=== PATIENT | male | born 1955 | race American Indian/Alaskan Native ===

== ENCOUNTER 2019-01-01 11:12 | Inpatient (IN) | payer MEDICARE, OTHER ==
[2019-01-01 12:12] LABS: BUN/Creatinine Ratio 12; Blood Urea Nitrogen 27 mg/dL (9-20); Calcium 8.7 mg/dL (8.4-10.2); Hemolysis Index 4
--- NOTE | 2019-01-01 12:15 | XRay Report ---
AP CHEST: HISTORY: chest pain AP view of the chest demonstrates a normal mediastinal and cardiac contour with clear lungs and normal bony and soft tissue structures. IMPRESSION: No acute cardiopulmonary process is identified.
[2019-01-01 12:25] LABS: Basophils # (Auto) 0.1 K/mm3 (0.0-0.1); Basophils % (Auto) 0.9 % (0.0-1.8); Eosinophils # (Auto) 0.3 K/mm3 (0.0-0.4); Hematocrit 40.6 % (35.5-45.6); Hemoglobin 13.5 gm/dl (11.8-15.2); Lymphocytes # (Auto) 0.9 K/mm3 (1.2-5.4); Lymphocytes % (Auto) 13.9 % (13.4-35.0); Mean Corpuscular HGB Conc 33 % (32-34); Mean Corpuscular Volume 90 fl (84-94); Monocytes # (Auto) 0.5 K/mm3 (0.0-0.8); Monocytes % (Auto) 7.4 % (0.0-7.3); Platelet Count 143 K/mm3 (140-440); Red Blood Count 4.52 M/mm3 (3.65-5.03); Red Cell Distribution Width 16.5 % (13.2-15.2)
[2019-01-01 12:35] LABS: INR 0.94 (0.87-1.13)
--- NOTE | 2019-01-01 13:37 | Emergency Department Report ---
ED Chest Pain HPI - General Chief Complaint: Chest Pain Stated Complaint: CHEST PAIN Time Seen by Provider: 01/01/19 11:26 Source: patient, EMS Mode of arrival: Stretcher Limitations: No Limitations - History of Present Illness Initial Comments: This is a 63-year-old man complains of substernal chest which does not radiate. He is a poor historian. He states that it began when he awoke this morning. He states that his chest does hurt worse when he bends or twists. He was found to have a heart rate in the 40s by EMS. Although his blood pressure was normal, paramedics elected to give him 0.5 mg of atropine IV push. This resulted in a heart rate in the 60s. When he arrived he was again bradycardic in the 50s. He did not look distressed. Chest pain did not radiate. He did complain of some vague shortness of breath. He stated that sometimes he gets sweaty but not today. He has had no nausea or vomiting. Patient states that he may have had prior workup for chest pain. He does not carry any specific diagnosis for CAD or VTE. He states he thinks he's been admitted for chest pain in the past but again is very vague. He denies alcohol or substance abuse. MD Complaint: chest pain -: During the night Onset: awoke with symptoms Pain Location: substernal Pain Radiation: none Severity: moderate Severity scale (0 -10): 5 Quality: aching, sharp Consistency: constant Improves With: nothing Worsens With: nothing re: dyspnea. denies: nausea, vomting, diaphoresis Other Symptoms: denies: cough, fever, syncope Treatments Prior to Arrival: aspirin, other (atropine) Aspirin use within the Past 7 Days: (0) No - Related Data Allergies Allergy/AdvReac Type Severity Reaction Status Date / Time Penicillins Allergy Rash Verified 01/01/19 11:34 Heart Score - HEART Score History: Slightly suspicious EKG: Non-specific Age: 45-65 Risk factors: 1-2 risk factors Troponin: 1-3x normal limit HEART Score: 4 - Critical Actions Critical Actions: 4-6 pts:12-16.6% risk of adverse cardiac event. Should be admitted ED Review of Systems ROS: Stated complaint: CHEST PAIN Other details as noted in HPI Constitutional: denies: chills, fever Eyes: denies: eye pain, eye discharge, vision change ENT: denies: ear pain, throat pain Respiratory: shortness of breath. denies: cough, wheezing Cardiovascular: chest pain. denies: palpitations Endocrine: no symptoms reported Gastrointestinal: denies: abdominal pain, nausea, diarrhea Genitourinary: denies: urgency, dysuria Musculoskeletal: denies: back pain, joint swelling, arthralgia Skin: denies: rash, lesions Neurological: denies: headache, weakness, paresthesias Psychiatric: denies: anxiety, depression Hematological/Lymphatic: denies: easy bleeding, easy bruising ED Past Medical Hx - Past Medical History Previous Medical History?: Yes Hx GERD: Yes - Surgical History Past Surgical History?: Yes Additional Surgical History: Left Nephrectomy - Social History Smoking Status: Current Every Day Smoker Substance Use Type: None ED Physical Exam - General Limitations: No Limitations General appearance: alert, in no apparent distress - Head Head exam: Present: atraumatic, normocephalic - Eye Eye exam: Present: normal appearance. Absent: scleral icterus - ENT ENT exam: Present: mucous membranes moist - Neck Neck exam: Present: normal inspection - Respiratory Respiratory exam: Present: normal lung sounds bilaterally, chest wall tenderness. Absent: respiratory distress - Cardiovascular Cardiovascular Exam: Present: regular rate, normal rhythm. Absent: systolic murmur, diastolic murmur, rubs, gallop - GI/Abdominal GI/Abdominal exam: Present: soft, normal bowel sounds. Absent: distended, tenderness, guarding, rebound, rigid - Rectal Rectal exam: Present: deferred - Extremities Exam Extremities exam: Present: normal inspection - Back Exam Back exam: Present: normal inspection - Neurological Exam Neurological exam: Present: alert, oriented X3, CN II-XII intact. Absent: motor sensory deficit - Psychiatric Psychiatric exam: Present: normal affect, normal mood - Skin Skin exam: Present: warm, dry, intact, normal color. Absent: rash ED Course Vital Signs 01/01/19 01/01/19 01/01/19 11:26 11:30 12:00 Temperature 98.5 F Pulse Rate 49 L 49 L Respiratory 13 15 Rate Blood Pressure 140/85 Blood Pressure 140/85 [Left] O2 Sat by Pulse 96 100 98 Oximetry 01/01/19 01/01/19 01/01/19 12:30 13:01 13:30 Temperature Pulse Rate 47 L 46 L 44 L Respiratory 15 16 16 Rate Blood Pressure 136/73 147/81 138/80 Blood Pressure [Left] O2 Sat by Pulse 100 100 97 Oximetry - Reevaluation(s) Reevaluation #1: Patient remained hemodynamically stable. He was admitted to the hospital service for further care and evaluation. 01/01/19 13:44 DOT score - Dot Score Age > 65: (0) No Aspirin use within the Past 7 Days: (0) No 3 or more CAD Risk Factors: (0) No 2 or more Angina events in past 24 hrs: (0) No Known CAD with more than 50% Stenosis: (0) No Elevated Cardiac Markers: (0) No ST Deviation Greater than 0.5mm: (0) No DOT Score: 0 ED Medical Decision Making - Lab Data Result diagrams: 01/01/19 11:40 01/01/19 11:40 Laboratory Results - last 24 hr 01/01/19 01/01/19 01/01/19 11:40 11:40 11:40 WBC 6.4 RBC 4.52 Hgb 13.5 Hct 40.6 MCV 90 MCH 30 MCHC 33 RDW 16.5 H Plt Count 143 Lymph % (Auto) 13.9 [place] % (Auto) 7.4 H Eos % (Auto) 5.0 H Baso % (Auto) 0.9 Lymph # 0.9 L Burt # 0.5 Eos # 0.3 Baso # 0.1 Seg Neutrophils % 72.8 H Seg Neutrophils # 4.6 PT 13.1 INR 0.94 APTT 29.0 Sodium 140 Potassium 4.5 Chloride 106.2 Carbon Dioxide 25 Anion Gap 13 BUN 27 H Creatinine 2.2 H Estimated GFR 37 BUN/Creatinine Ratio 12 Glucose 95 Calcium 8.7 Troponin T < 0.010 No prior creatinine - EKG Data -: EKG Interpreted by Ar EKG shows normal: sinus rhythm Rate: bradycardia - EKG Data Interpretation: LVH, other (LVH with intraventricular conduction delay and bradycardia left axis deviation LAFB) Critical care attestation.: If time is entered above; I have spent that time in minutes in the direct care of this critically ill patient, excluding procedure time. ED Disposition Clinical Impression: Bradycardia, Chronic renal insufficiency, stage III (moderate) Chest pain Qualifiers: Chest pain type: unspecified Qualified Code(s): R07.9 - Chest pain, unspecified Disposition: DC-09 OP ADMIT IP TO THIS HOSP Is pt being admited?: Yes Does the pt Need Aspirin: Yes Condition: Stable Instructions: Chest Pain (ED) Referrals: RENNY ABTES MD [Primary Care Provider] - 3-5 Days Time of Disposition: 13:46
[2019-01-01] MEDS ORDERED: ASPIRIN ONE (14:29)
[2019-01-01] MEDS: ASPIRIN PO ONE ×2 (14:30→14:49)
[2019-01-01] MEDS ORDERED: TYLENOL PO PRN ×2 (22:07→22:09)
--- NOTE | 2019-01-01 22:07 | History and Physical Report ---
History of Present Illness Date of examination: 01/01/19 Date of admission: 01/01/19 13:46 Chief complaint: Chest pain since yesterday History of present illness: 63-year-old male with history of COPD hypertension and GERD peripheral neuropathy and muscle spasms comes in for substernal chest pain since yesterday. Chest pain more since morning associated with nausea and vomiting 1. EMS was called and he was noticed to have a low heart rate of 45. Was given atropine enroute. Chest pain is intermittent and about 6 on a scale of 1-10. Retrosternal and precordial. No radiation to the left arm on the back. No diaphoresis or palpitations. No shortness of breath. No recent travel. No fevers or chills. Past Medical History Previous Medical History?: Yes GERD: Yes Hyperlipidemia Vitamin D deficiency Depression Anemia Peripheral neuropathy muscle spasms Surgical History Past Surgical History?: Yes Additional Surgical History: Left Nephrectomy Social History Smoking Status: Current Every Day Smoker Substance Use Type: None Family history hypertension Review of Systems ROS: Stated complaint: CHEST PAIN Other details as noted in HPI Constitutional: denies: chills, fever Eyes: denies: eye pain, eye discharge, vision change ENT: denies: ear pain, throat pain Respiratory: shortness of breath. denies: cough, wheezing Cardiovascular: chest pain. denies: palpitations Endocrine: no symptoms reported Gastrointestinal: denies: abdominal pain, nausea, diarrhea Genitourinary: denies: urgency, dysuria Musculoskeletal: denies: back pain, joint swelling, arthralgia Skin: denies: rash, lesions Neurological: denies: headache, weakness, paresthesias Psychiatric: denies: anxiety, depression Hematological/Lymphatic: denies: easy bleeding, easy bruising 14 point review of systems done and otherwise negative. Medications and Allergies Allergies Allergy/AdvReac Type Severity Reaction Status Date / Time Penicillins Allergy Rash Verified 01/01/19 11:34 Home Medications Medication Instructions Recorded Confirmed Last Taken Type Acetaminophen [Tylenol] 500 mg PO Q6HR PRN 01/01/19 01/01/19 Unknown History Albuterol Sulfate [Ventolin Hfa] 2 puff PO Q4-6H 01/01/19 01/01/19 Unknown History AtorvaSTATin [Lipitor] 20 mg PO QHS 01/01/19 01/01/19 Unknown History DULoxetine [Cymbalta] 30 mg PO DAILY 01/01/19 01/01/19 Unknown History Ergocalciferol [Vitamin D2] 1 cap PO QWEEK 01/01/19 01/01/19 Unknown History Ferrous Sulfate [Feosol] 325 mg PO QDAY 01/01/19 01/01/19 Unknown History Omeprazole 20 mg PO DAILY 01/01/19 01/01/19 Unknown History Pregabalin [Lyrica] 50 mg PO TID 01/01/19 01/01/19 Unknown History hydroCHLOROthiazide [Hctz] 12.5 mg PO QDAY 01/01/19 01/01/19 Unknown History tiZANidine [Zanaflex] 4 mg PO BID 01/01/19 01/01/19 Unknown History Exam - Constitutional Vitals: Temp Pulse Resp BP Pulse Ox 98.7 F 56 L 16 128/78 99 01/01/19 19:38 01/01/19 19:38 01/01/19 19:38 01/01/19 19:38 01/01/19 19:38 General appearance: Present: no acute distress, well-nourished - EENT Eyes: Present: PERRL ENT: hearing intact, clear oral mucosa - Neck Neck: Present: supple, normal ROM - Respiratory Respiratory effort: normal Respiratory: bilateral: CTA - Cardiovascular Heart rate: 78 Rhythm: regular Heart Sounds: Present: S1 & S2. Absent: rub, click - Extremities Extremities: no ischemia, pulses intact, pulses symmetrical, No edema Peripheral Pulses: within normal limits - Abdominal General gastrointestinal: Present: soft, non-tender, non-distended, normal bowel sounds Male genitourinary: Present: normal - Rectal Rectal Exam: deferred - Integumentary Integumentary: Present: clear, warm, dry - Musculoskeletal Musculoskeletal: gait normal, strength equal bilaterally - Psychiatric Psychiatric: appropriate mood/affect, intact judgment & insight - Neurologic Neurologic: CNII-XII intact, moves all extremities - Allied Health Allied health notes reviewed: nursing, case management Results - Labs CBC & Chem 7: 01/01/19 11:40 01/01/19 11:40 Labs: Laboratory Last Values WBC 6.4 K/mm3 (4.5-11.0) 01/01/19 11:40 RBC 4.52 M/mm3 (3.65-5.03) 01/01/19 11:40 Hgb 13.5 gm/dl (11.8-15.2) 01/01/19 11:40 Hct 40.6 % (35.5-45.6) 01/01/19 11:40 MCV 90 fl (84-94) 01/01/19 11:40 MCH 30 pg (28-32) 01/01/19 11:40 MCHC 33 % (32-34) 01/01/19 11:40 RDW 16.5 % (13.2-15.2) H 01/01/19 11:40 Plt Count 143 K/mm3 (140-440) 01/01/19 11:40 Lymph % (Auto) 13.9 % (13.4-35.0) 01/01/19 11:40 [place] % (Auto) 7.4 % (0.0-7.3) H 01/01/19 11:40 Eos % (Auto) 5.0 % (0.0-4.3) H 01/01/19 11:40 Baso % (Auto) 0.9 % (0.0-1.8) 01/01/19 11:40 Lymph # 0.9 K/mm3 (1.2-5.4) L 01/01/19 11:40 [place] # 0.5 K/mm3 (0.0-0.8) 01/01/19 11:40 Eos # 0.3 K/mm3 (0.0-0.4) 01/01/19 11:40 Baso # 0.1 K/mm3 (0.0-0.1) 01/01/19 11:40 Seg Neutrophils % 72.8 % (40.0-70.0) H 01/01/19 11:40 Seg Neutrophils # 4.6 K/mm3 (1.8-7.7) 01/01/19 11:40 PT 13.1 Sec. (12.2-14.9) 01/01/19 11:40 INR 0.94 (0.87-1.13) 01/01/19 11:40 APTT 29.0 Sec. (24.2-36.6) 01/01/19 11:40 Sodium 140 mmol/L (137-145) 01/01/19 11:40 Potassium 4.5 mmol/L (3.6-5.0) 01/01/19 11:40 Chloride 106.2 mmol/L (98-107) 01/01/19 11:40 Carbon Dioxide 25 mmol/L (22-30) 01/01/19 11:40 13 mmol/L 01/01/19 11:40 BUN 27 mg/dL (9-20) H 01/01/19 11:40 2.2 mg/dL (0.8-1.5) H 01/01/19 11:40 Estimated GFR 37 ml/min 01/01/19 11:40 12 % 01/01/19 11:40 Glucose 95 mg/dL (75-100) 01/01/19 11:40 Calcium 8.7 mg/dL (8.4-10.2) 01/01/19 11:40 < 0.010 ng/mL (0.00-0.029) 01/01/19 16:27 Short CBC 01/01/19 Range/Units 11:40 WBC 6.4 (4.5-11.0) K/mm3 Hgb 13.5 (11.8-15.2) gm/dl Hct 40.6 (35.5-45.6) % Plt Count 143 (140-440) K/mm3 BMP 01/01/19 11:40 Sodium 140 Potassium 4.5 Chloride 106.2 Carbon Dioxide 25 BUN 27 H Creatinine 2.2 H Glucose 95 Calcium 8.7 Cardiac Enzymes 01/01/19 01/01/19 01/01/19 Range/Units 11:40 14:29 16:27 Troponin T < 0.010 < 0.010 < 0.010 (0.00-0.029) ng/mL - Imaging and Cardiology EKG: report reviewed (sinus bradycardia heart rate of 53/m left ventricle hypertrophy) Chest x-ray: report reviewed (no acute findings) Assessment and Plan Advance Directives: Yes (full code) VTE prophylaxis?: Chemical Plan of care discussed with patient/family: Yes - Patient Problems (1) JAYLA (acute kidney injury) Current Visit: Yes Status: Acute Plan to address problem: Possible ATN IV fluids for now Possible underlying CAD Nephrology consult requested (2) Chest pain Current Visit: Yes Status: Acute Qualifiers: Chest pain type: unspecified Qualified Code(s): R07.9 - Chest pain, unspecified Plan to address problem: Chest pain rule out [place] protocol Serial troponins Lexiscan in the morning Differential diagnosis of costochondritis unlikely Possible GERD (3) Bradycardia Current Visit: Yes Status: Acute Plan to address problem: Asymptomatic Heart rate in 50s Cardiology consult if necessary (4) Hypertension Current Visit: Yes Status: Chronic Qualifiers: Hypertension type: essential hypertension Qualified Code(s): I10 - Essential (primary) hypertension Plan to address problem: Continue antihypertensives (5) Hyperlipidemia Current Visit: Yes Status: Chronic Qualifiers: Hyperlipidemia type: mixed hyperlipidemia Qualified Code(s): E78.2 - Mixed hyperlipidemia Plan to address problem: Continue statins (6) Vitamin D deficiency Current Visit: Yes Status: Chronic Plan to address problem: Continue vitamin D as per schedule Not due for a few days (7) GERD (gastroesophageal reflux disease) Current Visit: Yes Status: Chronic Qualifiers: Esophagitis presence: with esophagitis Qualified Code(s): K21.0 - Gastro- esophageal reflux disease with esophagitis Plan to address problem: Continue omeprazole (8) Peripheral neuropathy Current Visit: Yes Status: Chronic Qualifiers: Peripheral neuropathy type: polyneuropathy, unspecified Qualified Code(s): G62.9 - Polyneuropathy, unspecified Plan to address problem: Continue Lyrica (9) Muscle spasm Current Visit: Yes Status: Chronic Plan to address problem: Continue Zanaflex (10) DVT prophylaxis Current Visit: Yes Status: Acute Plan to address problem: Continue Lovenox and GI prophylaxis
[2019-01-01] MEDS ORDERED: SODIUM CHLORIDE FLUSH SYRINGE 10 ML IV PRN (22:09)
[2019-01-01] MEDS ORDERED: PERCOCET 5/325 PO PRN (22:09)
[2019-01-01] MEDS ORDERED: MORPHINE IV PRN (22:09)
[2019-01-01] MEDS ORDERED: ZOFRAN IV PRN (22:09)
[2019-01-01] MEDS ORDERED: PROAIR IH SCH (22:15)
[2019-01-01] MEDS ORDERED: PROVENTIL IH PRN (22:42)
[2019-01-01] MEDS: ZANAFLEX PO SCH (23:26)
[2019-01-01] MEDS: NACL 0.9% 1000 ML 1,000 ML IV SCH (23:28)
[2019-01-02 05:12] LABS: Basophils % (Auto) 0.6 % (0.0-1.8); Eosinophils # (Auto) 0.3 K/mm3 (0.0-0.4); Hematocrit 39.3 % (35.5-45.6); Hemoglobin 13.2 gm/dl (11.8-15.2); Lymphocytes # (Auto) 1.3 K/mm3 (1.2-5.4); Lymphocytes % (Auto) 20.6 % (13.4-35.0); Mean Corpuscular HGB Conc 34 % (32-34); Mean Corpuscular Volume 89 fl (84-94); Monocytes # (Auto) 0.7 K/mm3 (0.0-0.8); Monocytes % (Auto) 11.1 % (0.0-7.3); Platelet Count 137 K/mm3 (140-440); Red Cell Distribution Width 15.9 % (13.2-15.2)
[2019-01-02 05:36] LABS: Albumin 3.6 g/dL (3.9-5); Calcium 8.6 mg/dL (8.4-10.2)
[2019-01-02] MEDS ORDERED: NON-FORMULARY (Pregabalin [Lyrica] 50 MG) PO SCH (08:00)
[2019-01-02] MEDS ORDERED: LEXISCAN IV ONE ×2 (08:40→08:42)
[2019-01-02] MEDS ORDERED: PEPCID IV SCH (10:00)
[2019-01-02] MEDS ORDERED: NON-FORMULARY (Omeprazole [Omeprazole] 20 MG) PO SCH (10:00)
[2019-01-02] MEDS: LYRICA PO SCH ×3 (10:22→21:30)
[2019-01-02] MEDS: CYMBALTA PO SCH (10:22)
[2019-01-02] MEDS: FEOSOL PO SCH (10:22)
[2019-01-02] MEDS: ZANAFLEX PO SCH ×2 (10:22→21:30)
[2019-01-02] MEDS: HCTZ PO SCH (10:23)
[2019-01-02] MEDS: PROTONIX PO SCH (10:23)
[2019-01-02] MEDS: NACL 0.9% 1000 ML 1,000 ML IV SCH (10:27)
--- NOTE | 2019-01-02 11:28 | Consultation ---
History of Present Illness - Reason for Consult Consult date: 01/02/19 acute renal failure - History of Present Illness The patient is a 63-year-old male with history significant for COPD, GERD, HLD and Peripheral neuropathy who presented to [facility] ED with pain in the epigastric area for about 2 days. Patient gets this kind of pain everytime he eats black pepper. Patient is a very vague historian. The pain is aching, intermittent, not radiating and epigastric / xiphisternal area. He denies nausea, vomiting, diarrhea, fever, chills, dizziness, syncope or NSAID intake. Creatinine was 2.2 on admission, baseline unknown. Nephrology was consulted for further evaluation. Past History Past Medical History: COPD, hyperlipidemia, other (Neuropathy) Medications and Allergies Allergies Allergy/AdvReac Type Severity Reaction Status Date / Time black pepper Allergy Itching Verified 01/02/19 01:58 Penicillins Allergy Rash Verified 01/01/19 11:34 Home Medications Medication Instructions Recorded Confirmed Last Taken Type Acetaminophen [Tylenol] 500 mg PO Q6HR PRN 01/01/19 01/01/19 Unknown History Albuterol Sulfate [Ventolin Hfa] 2 puff PO Q4-6H 01/01/19 01/01/19 Unknown History AtorvaSTATin [Lipitor] 20 mg PO QHS 01/01/19 01/01/19 Unknown History DULoxetine [Cymbalta] 30 mg PO DAILY 01/01/19 01/01/19 Unknown History Ergocalciferol [Vitamin D2] 1 cap PO QWEEK 01/01/19 01/01/19 Unknown History Ferrous Sulfate [Feosol] 325 mg PO QDAY 01/01/19 01/01/19 Unknown History Omeprazole 20 mg PO DAILY 01/01/19 01/01/19 Unknown History Pregabalin [Lyrica] 50 mg PO TID 01/01/19 01/01/19 Unknown History hydroCHLOROthiazide [Hctz] 12.5 mg PO QDAY 01/01/19 01/01/19 Unknown History tiZANidine [Zanaflex] 4 mg PO BID 01/01/19 01/01/19 Unknown History Active Meds: Active Medications Acetaminophen (Tylenol) 650 mg PO Q4H PRN PRN Reason: Pain MILD(1-3)/Fever >100.5/[place] Albuterol (Proventil) 2.5 mg IH Q4HRT PRN PRN Reason: Shortness Of Breath Atorvastatin Calcium (Lipitor) 20 mg PO QHS [facility] Duloxetine HCl (Cymbalta) 30 mg PO DAILY [facility] Last Admin: 01/02/19 10:22 Dose: 30 mg Documented by: Ferrous Sulfate (Feosol) 325 mg PO QDAY [facility] Last Admin: 01/02/19 10:22 Dose: 325 mg Documented by: Hydrochlorothiazide (Hctz) 12.5 mg PO QDAY [facility] Last Admin: 01/02/19 10:23 Dose: 12.5 mg Documented by: Sodium Chloride (Nacl 0.9% 1000 Ml) 1,000 mls @ 125 mls/hr IV DIRECT [facility] Last Admin: 01/02/19 10:27 Dose: 75 mls/hr Documented by: Morphine Sulfate (Morphine) 2 mg IV Q4H PRN PRN Reason: Pain, Moderate (4-6) Ondansetron HCl (Zofran) 4 mg IV Q8H PRN PRN Reason: Nausea And Vomiting Oxycodone/Acetaminophen (Percocet 5/325) 1 tab PO Q6H PRN PRN Reason: Pain, Moderate (4-6) Pantoprazole Sodium (Protonix) 20 mg PO QDAY [facility] Last Admin: 01/02/19 10:23 Dose: 20 mg Documented by: Pregabalin (Lyrica) 50 mg PO TID [facility] Last Admin: 01/02/19 10:22 Dose: 50 mg Documented by: Sodium Chloride (Sodium Chloride Flush Syringe 10 Ml) 10 ml IV BID [facility] Sodium Chloride (Sodium Chloride Flush Syringe 10 Ml) 10 ml IV PRN PRN PRN Reason: LINE FLUSH Tizanidine HCl (Zanaflex) 4 mg PO BID [facility] Last Admin: 01/02/19 10:22 Dose: 4 mg Documented by: Review of Systems Constitutional: no weight loss, no weight gain, no fever, no chills, no anorexia, no fatigue, no weakness Cardiovascular: chest pain, no orthopnea, no edema, no syncope, no lightheadedness, no shortness of breath, no dyspnea on exertion, no high blood pressure, no leg edema Respiratory: no cough, no shortness of breath, no dyspnea on exertion, no home oxygen Gastrointestinal: abdominal pain, no diarrhea, no melena, no hematochezia Genitourinary Male: no dysuria, no hematuria Rectal: no bleeding Musculoskeletal: no neck pain, no muscle weakness Integumentary: no rash, no redness, no sores, no wounds, no jaundice Neurological: no weakness, no aphasia, no change in speech, no change in mentation, no confusion Exam - Vital Signs Vital signs: Vital Signs Pulse Ox 96 01/01/19 11:26 - General Appearance General appearance: well-developed, well-nourished, appears stated age, other (not in distress) EENT: ATNC, PERRL, mucous membranes moist, hearing intact, vision intact Neck: Present: neck supple, trachea midline Respiratory: Clear to Ascultation Heart: regular, S1S2, no murmurs Gastrointestinal: Present: normoactive bowel sounds. Absent: tenderness, distended Integumentary: no rash, warm and dry Neurologic: no focal deficit, no asterixis, alert and oriented x3 Musculoskeletal: Present: other (no edema) Results - Lab Results 01/02/19 04:00 01/02/19 04:00 Most recent lab results Calcium 8.6 mg/dL (8.4-10.2) 01/02/19 04:00 - Image Kidney/bladder ultrasound: pending Assessment and Plan 1. Acute kidney injury: Suspect Vasomotor JAYLA superimposed on CKD. Urine studies and Renal US ordered. Continue IV fluids. Monitor renal function. Avoid nephrotoxic agents. Meds dosage based on GFR. 2. FEN: Monitor lytes. 3. Chest pain. 4. Asymptomatic bradycardia.
--- NOTE | 2019-01-02 14:39 | Progress Note ---
Assessment and Plan Assessment and plan: 63-year-old male with history of COPD, hypertension and GERD peripheral neuropathy and muscle spasms comes in for substernal chest pain since yesterday. Chest pain more since morning associated with nausea and vomiting 1. EMS was called and he was noticed to have a low heart rate of 45. Was given atropine enroute. Chest pain is intermittent and about 6 on a scale of 1-10. Retrosternal and precordial. No radiation to the left arm on the back. No diaphoresis or palpitations. No shortness of breath. No recent travel. No fevers or chills. 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 Abdomen outpatient follow-up with cardiology consult and bradycardia. Continue antihypertensive and appropriate medication I discussed with the patient DVT and GI prophylaxis History Interval history: Patient and examined no acute distress at this time resting comfortably. Denies any further chest pain. Denies any nausea vomiting. Hospitalist Physical - Physical exam Narrative exam: VITAL SIGNS: Reviewed. GENERAL: The patient appeared well nourished and normally developed, Vital signs as documented. HEAD: No signs of head trauma. EYES: Pupils are equal. Extraocular motions intact. EARS: Hearing grossly intact. MOUTH: Oropharynx is normal. NECK: No adenopathy, no JVD. Mildly tender on the right side. CHEST: Chest with clear breath sounds bilaterally. No wheezes, rales, or rhonchi. CARDIAC: Regular rate and rhythm. S1 and S2, without murmurs, gallops, or rubs. VASCULAR: No Edema. Peripheral pulses normal and equal in all extremities. ABDOMEN: Soft, non tender and non distended. No rebound or guarding, and no masses palpated. Bowel Sounds normal. MUSCULOSKELETAL: Good range of motion of all major joints. Extremities without clubbing, cyanosis or edema. NEUROLOGIC EXAM: Alert and oriented x 3 No focal sensory or strength deficit s. Speech normal. Follows commands. PSYCHIATRIC: Mood normal. SKIN: Well-healed left surgical lesion in the flank area. - Constitutional Vitals: Temp Pulse Resp BP Pulse Ox 99.1 F 58 L 18 128/74 93 01/02/19 07:49 01/02/19 04:09 01/02/19 07:49 01/02/19 09:13 01/02/19 04:09 General appearance: Present: no acute distress, well-nourished Results - Labs CBC & Chem 7: 01/02/19 04:00 01/02/19 04:00 Labs: Laboratory Last Values WBC 6.5 K/mm3 (4.5-11.0) 01/02/19 04:00 RBC 4.40 M/mm3 (3.65-5.03) 01/02/19 04:00 Hgb 13.2 gm/dl (11.8-15.2) 01/02/19 04:00 Hct 39.3 % (35.5-45.6) 01/02/19 04:00 MCV 89 fl (84-94) 01/02/19 04:00 MCH 30 pg (28-32) 01/02/19 04:00 MCHC 34 % (32-34) 01/02/19 04:00 RDW 15.9 % (13.2-15.2) H 01/02/19 04:00 Plt Count 137 K/mm3 (140-440) L 01/02/19 04:00 Lymph % (Auto) 20.6 % (13.4-35.0) 01/02/19 04:00 Pitkin % (Auto) 11.1 % (0.0-7.3) H 01/02/19 04:00 Eos % (Auto) 5.0 % (0.0-4.3) H 01/02/19 04:00 Baso % (Auto) 0.6 % (0.0-1.8) 01/02/19 04:00 Lymph # 1.3 K/mm3 (1.2-5.4) 01/02/19 04:00 Pitkin # 0.7 K/mm3 (0.0-0.8) 01/02/19 04:00 Eos # 0.3 K/mm3 (0.0-0.4) 01/02/19 04:00 Baso # 0.0 K/mm3 (0.0-0.1) 01/02/19 04:00 Seg Neutrophils % 62.7 % (40.0-70.0) 01/02/19 04:00 Seg Neutrophils # 4.1 K/mm3 (1.8-7.7) 01/02/19 04:00 PT 13.1 Sec. (12.2-14.9) 01/01/19 11:40 INR 0.94 (0.87-1.13) 01/01/19 11:40 APTT 29.0 Sec. (24.2-36.6) 01/01/19 11:40 Sodium 140 mmol/L (137-145) 01/02/19 04:00 Potassium 4.4 mmol/L (3.6-5.0) 01/02/19 04:00 Chloride 106.4 mmol/L (98-107) 01/02/19 04:00 Carbon Dioxide 23 mmol/L (22-30) 01/02/19 04:00 15 mmol/L 01/02/19 04:00 BUN 23 mg/dL (9-20) H 01/02/19 04:00 1.9 mg/dL (0.8-1.5) H 01/02/19 04:00 Estimated GFR 43 ml/min 01/02/19 04:00 12 % 01/02/19 04:00 Glucose 97 mg/dL (75-100) 01/02/19 04:00 5.5 % (4-6) 01/01/19 22:42 Calcium 8.6 mg/dL (8.4-10.2) 01/02/19 04:00 0.90 mg/dL (0.1-1.2) 01/02/19 04:00 AST 14 units/L (5-40) 01/02/19 04:00 ALT 10 units/L (7-56) 01/02/19 04:00 63 units/L (35-129) 01/02/19 04:00 < 0.010 ng/mL (0.00-0.029) 01/02/19 04:00 6.3 g/dL (6.3-8.2) 01/02/19 04:00 3.6 g/dL (3.9-5) L 01/02/19 04:00 1.3 % 01/02/19 04:00 Active Medications - Current Medications Current Medications: Generic Name Dose Route Start Last Admin Trade Name Freq PRN Reason Stop Dose Admin Acetaminophen 650 mg 01/01/19 22:09 Tylenol PO Q4H PRN Pain MILD(1-3)/Fever >100.5/STRATTON Albuterol 2.5 mg 01/01/19 22:42 Proventil IH Q4HRT PRN Shortness Of Breath Atorvastatin Calcium 20 mg 01/02/19 22:00 Lipitor PO QHS JEYSON Duloxetine HCl 30 mg 01/02/19 10:00 01/02/19 10:22 Cymbalta PO 30 mg DAILY JEYSON Administration Ferrous Sulfate 325 mg 01/02/19 10:00 01/02/19 10:22 Feosol PO 325 mg QDAY JEYSON Administration Hydrochlorothiazide 12.5 mg 01/02/19 10:00 01/02/19 10:23 Hctz PO 12.5 mg QDAY JEYSON Administration Sodium Chloride 1,000 mls @ 125 mls/hr 01/01/19 23:00 01/02/19 10:27 Nacl 0.9% 1000 Ml IV 75 mls/hr DIRECT JEYSON Administration Morphine Sulfate 2 mg 01/01/19 22:09 Morphine IV Q4H PRN Pain, Moderate (4-6) Ondansetron HCl 4 mg 01/01/19 22:09 Zofran IV Q8H PRN Nausea And Vomiting Oxycodone/Acetaminophen 1 tab 01/01/19 22:09 Percocet 5/325 PO Q6H PRN Pain, Moderate (4-6) Pantoprazole Sodium 20 mg 01/02/19 10:00 01/02/19 10:23 Protonix PO 20 mg QDAY JEYSON Administration Pregabalin 50 mg 01/02/19 08:00 01/02/19 10:22 Lyrica PO 50 mg TID JEYSON Administration Sodium Chloride 10 ml 01/02/19 10:00 Sodium Chloride Flush Syringe 10 Ml IV BID JEYSON Sodium Chloride 10 ml 01/01/19 22:09 Sodium Chloride Flush Syringe 10 Ml IV PRN PRN LINE FLUSH Tizanidine HCl 4 mg 01/01/19 23:00 01/02/19 10:22 Zanaflex PO 4 mg BID JEYSON Administration
--- NOTE | 2019-01-02 15:20 | Ultrasound Report ---
ULTRASOUND RENAL BILATERAL HISTORY: Acute renal failure. TECHNIQUE: transabdominal ultrasound with color Doppler interrogation. FINDINGS: The right kidney measures 11.3 x 5.2 x 6.7cm. Right renal cortex: 1.4cm. The patient reports left nephrectomy 2 years ago. The left kidney is not detected on ultrasound. The right kidney is normal size, contour and position. There is increased cortical echotexture. There are 2 cysts near the superior pole of the right kidney measuring 2.7 cm and 1.6 cm. No evidence for mass, calculus, hydronephrosis or perinephric fluid. Images of the bladder are unremarkable. A prominent prostate gland is suspected. IMPRESSION: Left nephrectomy. The right kidney is echogenic consistent with nonspecific renal parenchymal disease. 2 simple right renal cysts.
[2019-01-02] MEDS: SODIUM CHLORIDE FLUSH SYRINGE 10 ML IV SCH (21:31)
[2019-01-03 01:02] LABS: Bilirubin,Urine NEG (Negative); Blood,Urine SM (Negative); Color,Urine Yellow (Yellow); Mucus,Urine FEW /HPF; Protein,Urine <15 mg/dL mg/dL (Negative); Urobilinogen,Urine < 2.0 mg/dL (<2.0)
[2019-01-03 01:11] LABS: Protein/Creatinine Ratio,Urine 0.29
--- NOTE | 2019-01-03 01:53 | Treadmill Report ---
NUCLEAR PERFUSION STUDY REASON FOR STUDY: Bradycardia, near syncope. IMAGING PROTOCOL: The patient received 10 mCi of Technetium 99m Tetrofosmin for resting image and 28 mCi of Technetium 99m Tetrofosmin for stress imaging. The imaging for the whole procedure was completed 30-90 minutes following the initial injection of Technetium 99m Tetrofosmin. The SPECT imaging in the 180 degree arc was performed in the right anterior oblique projection. Computerized reconstruction of the images was performed for analysis. IMAGING RESULTS: Normal cavity size from stress to rest. Normal distribution of radionuclide in the anterior, inferior, septal, and apical regions. Gated SPECT, EF of 54%. SUMMARY: 1. Negative Lexiscan EKG. The patient with sinus bradycardia. 2. Normal rest and stress myocardial perfusion. No significant ischemia. No wall motion abnormality. Gated SPECT, EF of 54%. 1. JOB# [id number] JACQUELIN/MEREDITH
[2019-01-03 05:38] LABS: Calcium 8.5 mg/dL (8.4-10.2)
--- NOTE | 2019-01-03 08:29 | Progress Note ---
Assessment and Plan 1. Acute kidney injury: Suspect Vasomotor JAYLA superimposed on CKD. Unilateral kidney, s/p L nephrectomy. Continue IV fluids. Renal function is improving. Monitor renal function. Avoid nephrotoxic agents. Meds dosage based on GFR. 2. FEN: Monitor lytes. 3. Chest pain: Negative stress test. 4. Asymptomatic bradycardia. Subjective Date of service: 01/03/19 Interval history: Patient is feeling better today. Objective - Vital Signs Vital signs: Vital Signs - 12hr 01/02/19 01/03/19 01/03/19 23:24 04:12 07:56 Temperature 98.7 F 98.5 F 98.8 F Pulse Rate 50 L 50 L 50 L Respiratory 16 16 18 Rate Blood Pressure 126/71 124/76 135/85 O2 Sat by Pulse 94 92 96 Oximetry - General Appearance General appearance: well-developed, well-nourished, appears stated age, other (not in distress) EENT: ATNC, PERRL, mucous membranes moist, hearing intact, vision intact Neck: supple Respiratory: Present: Clear to Ascultation Cardiology: regular, S1S2, no murmurs Gastrointestinal: normoactive bowel sounds, no tenderness, no distended Integumentary: no rash, warm and dry Neurologic: no focal deficit, no asterixis, alert and oriented x3 Musculoskeletal: other (no edema) Psychiatric: cooperative - Lab 01/02/19 04:00 01/03/19 04:02 Most recent lab results Calcium 8.5 mg/dL (8.4-10.2) 01/03/19 04:02 Phosphorus 2.10 mg/dL (2.5-4.5) L 01/03/19 04:02 Magnesium 2.20 mg/dL (1.7-2.3) 01/03/19 04:02 59.0 mg/dL (0.1-20.0) H 01/02/19 00:01 69 mmol/L 01/02/19 00:01 17 mg/dL (5-11.8) H 01/02/19 00:01 Medications & Allergies - Medications Allergies/Adverse Reactions: Allergies black pepper Allergy (Verified 01/02/19 01:58) Itching Penicillins Allergy (Verified 01/01/19 11:34) Rash Home Medications: Home Medications Medication Instructions Recorded Confirmed Last Taken Type Acetaminophen [Tylenol] 500 mg PO Q6HR PRN 01/01/19 01/01/19 Unknown History Albuterol Sulfate [Ventolin Hfa] 2 puff PO Q4-6H 01/01/19 01/01/19 Unknown History AtorvaSTATin [Lipitor] 20 mg PO QHS 01/01/19 01/01/19 Unknown History DULoxetine [Cymbalta] 30 mg PO DAILY 01/01/19 01/01/19 Unknown History Ergocalciferol [Vitamin D2] 1 cap PO QWEEK 01/01/19 01/01/19 Unknown History Ferrous Sulfate [Feosol] 325 mg PO QDAY 01/01/19 01/01/19 Unknown History Omeprazole 20 mg PO DAILY 01/01/19 01/01/19 Unknown History Pregabalin [Lyrica] 50 mg PO TID 01/01/19 01/01/19 Unknown History hydroCHLOROthiazide [Hctz] 12.5 mg PO QDAY 01/01/19 01/01/19 Unknown History tiZANidine [Zanaflex] 4 mg PO BID 01/01/19 01/01/19 Unknown History Active Medications: Generic Name Dose Route Start Last Admin Trade Name Freq PRN Reason Stop Dose Admin Acetaminophen 650 mg 01/01/19 22:09 Tylenol PO Q4H PRN Pain MILD(1-3)/Fever >100.5/STRATTON Albuterol 2.5 mg 01/01/19 22:42 Proventil IH Q4HRT PRN Shortness Of Breath Atorvastatin Calcium 20 mg 01/02/19 22:00 01/02/19 21:30 Lipitor PO 20 mg QHS JEYSON Administration Duloxetine HCl 30 mg 01/02/19 10:00 01/02/19 10:22 Cymbalta PO 30 mg DAILY JEYSON Administration Ferrous Sulfate 325 mg 01/02/19 10:00 01/02/19 10:22 Feosol PO 325 mg QDAY JEYSON Administration Hydrochlorothiazide 12.5 mg 01/02/19 10:00 01/02/19 10:23 Hctz PO 12.5 mg QDAY JEYSON Administration Sodium Chloride 1,000 mls @ 125 mls/hr 01/01/19 23:00 01/02/19 10:27 Nacl 0.9% 1000 Ml IV 75 mls/hr DIRECT JEYSON Administration Morphine Sulfate 2 mg 01/01/19 22:09 Morphine IV Q4H PRN Pain, Moderate (4-6) Ondansetron HCl 4 mg 01/01/19 22:09 Zofran IV Q8H PRN Nausea And Vomiting Oxycodone/Acetaminophen 1 tab 01/01/19 22:09 Percocet 5/325 PO Q6H PRN Pain, Moderate (4-6) Pantoprazole Sodium 20 mg 01/02/19 10:00 01/02/19 10:23 Protonix PO 20 mg QDAY JEYSON Administration Pregabalin 50 mg 01/02/19 08:00 01/02/19 21:30 Lyrica PO 50 mg TID JEYSON Administration Sodium Chloride 10 ml 01/02/19 10:00 01/02/19 21:31 Sodium Chloride Flush Syringe 10 Ml IV Not Given BID JEYSON Sodium Chloride 10 ml 01/01/19 22:09 Sodium Chloride Flush Syringe 10 Ml IV PRN PRN LINE FLUSH Tizanidine HCl 4 mg 01/01/19 23:00 01/02/19 21:30 Zanaflex PO 4 mg BID JEYSON Administration
[2019-01-03] MEDS: HCTZ PO SCH (10:13)
[2019-01-03] MEDS: FEOSOL PO SCH (10:13)
[2019-01-03] MEDS: LYRICA PO SCH ×3 (10:13→20:19)
[2019-01-03] MEDS: CYMBALTA PO SCH (10:13)
[2019-01-03] MEDS: PROTONIX PO SCH (10:14)
[2019-01-03] MEDS: ZANAFLEX PO SCH ×2 (10:14→22:17)
[2019-01-03] MEDS: SODIUM CHLORIDE FLUSH SYRINGE 10 ML IV SCH ×2 (10:14→22:17)
--- NOTE | 2019-01-03 17:19 | Progress Note ---
Assessment and Plan - Patient Problems (1) JAYLA (acute kidney injury) Current Visit: Yes Status: Acute Plan to address problem: Possible ATN versus vasomotor nephropathy IV fluids for now--possible discharge tomorrow Possible underlying CKD Nephrology consult appreciated (2) Chest pain Current Visit: Yes Status: Acute Qualifiers: Chest pain type: unspecified Qualified Code(s): R07.9 - Chest pain, unspecified Plan to address problem: Chest pain rule out SC protocol Serial troponins Lexiscan negative1 negative (3) Bradycardia Current Visit: Yes Status: Acute Plan to address problem: Asymptomatic Heart rate in 50s Cardiology consult if necessary (4) Hypertension Current Visit: Yes Status: Chronic Qualifiers: Hypertension type: essential hypertension Qualified Code(s): I10 - Essential (primary) hypertension Plan to address problem: Continue antihypertensives (5) Hyperlipidemia Current Visit: Yes Status: Chronic Qualifiers: Hyperlipidemia type: mixed hyperlipidemia Qualified Code(s): E78.2 - Mixed hyperlipidemia Plan to address problem: Continue statins (6) Vitamin D deficiency Current Visit: Yes Status: Chronic Plan to address problem: Continue vitamin D as per schedule Not due for a few days (7) GERD (gastroesophageal reflux disease) Current Visit: Yes Status: Chronic Qualifiers: Esophagitis presence: with esophagitis Qualified Code(s): K21.0 - Gastro- esophageal reflux disease with esophagitis Plan to address problem: Continue omeprazole (8) Peripheral neuropathy Current Visit: Yes Status: Chronic Qualifiers: Peripheral neuropathy type: polyneuropathy, unspecified Qualified Code(s): G62.9 - Polyneuropathy, unspecified Plan to address problem: Continue Lyrica (9) Muscle spasm Current Visit: Yes Status: Chronic Plan to address problem: Continue Zanaflex (10) DVT prophylaxis Current Visit: Yes Status: Acute Plan to address problem: Continue Lovenox and GI prophylaxis Subjective Date of service: 01/03/19 Principal diagnosis: JAYLA/Chest pain Interval history: Symptomatically better Has some abdominal discomfort Objective - Constitutional Vitals: Vital Signs - 12hr 01/03/19 01/03/19 01/03/19 07:56 09:00 12:03 Temperature 98.8 F 98.1 F Pulse Rate 50 L 50 L Respiratory 18 18 Rate Blood Pressure 135/85 149/95 O2 Sat by Pulse 96 Oximetry General appearance: Present: no acute distress, well-nourished - EENT Eyes: PERRL, EOM intact ENT: hearing intact, clear oral mucosa Ears: bilateral: normal - Neck Neck: supple, normal ROM - Respiratory Respiratory effort: normal Respiratory: bilateral: CTA - Breasts Breasts: normal - Cardiovascular Heart rate: 78 Rhythm: regular Heart Sounds: Present: S1 & S2. Absent: gallop, rub Extremities: no ischemia, pulses intact, No edema, normal color, Full ROM - Gastrointestinal General gastrointestinal: Present: soft, non-tender, non-distended, normal bowel sounds - Genitourinary Male genitourinary: normal - Integumentary Integumentary: clear, warm, dry - Musculoskeletal Musculoskeletal: 1, strength equal bilaterally - Neurologic Neurologic: moves all extremities - Psychiatric Psychiatric: memory intact, appropriate mood/affect, intact judgment & insight - Allied health notes Allied health notes reviewed: nursing, case management - Labs CBC & Chem 7: 01/02/19 04:00 01/03/19 04:02 Labs: Abnormal lab results 01/02/19 01/02/19 01/03/19 Range/Units 00:01 00:01 04:02 Creatinine 1.8 H (0.8-1.5) mg/dL Glucose 108 H (75-100) mg/dL Phosphorus 2.10 L (2.5-4.5) mg/dL Urine WBC (Auto) 53.0 H (0.0-6.0) /HPF Urine Creatinine 59.0 H (0.1-20.0) mg/dL Urine Total Protein 17 H (5-11.8) mg/dL Renal ultrasound IMPRESSION: Left nephrectomy. The right kidney is echogenic consistent with nonspecific renal parenchymal disease. 2 simple right renal cysts.
[2019-01-03] MEDS ORDERED: PHOS-NAK PO ONE (17:26)
[2019-01-03] MEDS: NACL 0.9% 1000 ML 1,000 ML IV SCH (18:00)
[2019-01-04 05:36] VITALS: BP 112/63
[2019-01-04] MEDS: NACL 0.9% 1000 ML 1,000 ML IV SCH (07:35)
[2019-01-04] MEDS: LYRICA PO SCH (08:38)
[2019-01-04 09:01] LABS: Albumin 3.3 g/dL (3.9-5); Calcium 8.5 mg/dL (8.4-10.2)
--- NOTE | 2019-01-04 09:56 | Progress Note ---
Assessment and Plan 1. Acute kidney injury: Suspect Vasomotor JAYLA superimposed on CKD. Unilateral kidney, s/p L nephrectomy. Renal function is stabel, likely his baseline. Monitor renal function. Avoid nephrotoxic agents. Meds dosage based on GFR. 2. FEN: Monitor lytes. 3. Chest pain: Negative stress test. 4. Asymptomatic bradycardia. F/u with me in 1-2 weeks. Subjective Date of service: 01/04/19 Principal diagnosis: JAYLA/Chest pain Interval history: Patient is feeling better today. Objective - Vital Signs Vital signs: Vital Signs - 12hr 01/03/19 01/04/19 23:27 05:34 Temperature 98.1 F 98.3 F Pulse Rate 54 L 63 Respiratory 24 16 Rate Blood Pressure 112/63 [Left] O2 Sat by Pulse 98 94 Oximetry - General Appearance General appearance: well-developed, well-nourished, appears stated age, other (not in distress) EENT: ATNC, PERRL, mucous membranes moist, hearing intact, vision intact Neck: supple Respiratory: Present: Clear to Ascultation Cardiology: regular, S1S2, no murmurs Gastrointestinal: normoactive bowel sounds, no tenderness, no distended Integumentary: no rash, warm and dry Neurologic: no focal deficit, no asterixis, alert and oriented x3 Musculoskeletal: other (no edema) Psychiatric: cooperative - Lab 01/02/19 04:00 01/04/19 08:02 Most recent lab results Calcium 8.5 mg/dL (8.4-10.2) 01/04/19 08:02 Phosphorus 2.60 mg/dL (2.5-4.5) D 01/04/19 08:02 Magnesium 2.20 mg/dL (1.7-2.3) 01/03/19 04:02 59.0 mg/dL (0.1-20.0) H 01/02/19 00:01 69 mmol/L 01/02/19 00:01 17 mg/dL (5-11.8) H 01/02/19 00:01 Medications & Allergies - Medications Allergies/Adverse Reactions: Allergies black pepper Allergy (Verified 01/02/19 01:58) Itching Penicillins Allergy (Verified 01/01/19 11:34) Rash Home Medications: Home Medications Medication Instructions Recorded Confirmed Last Taken Type Acetaminophen [Acetaminophen TAB] 500 mg PO Q6HR PRN 01/01/19 01/01/19 Unknown History Albuterol Sulfate [Ventolin Hfa] 2 puff PO Q4-6H 01/01/19 01/01/19 Unknown History AtorvaSTATin [Lipitor] 20 mg PO QHS 01/01/19 01/01/19 Unknown History DULoxetine [Cymbalta] 30 mg PO DAILY 01/01/19 01/01/19 Unknown History Ergocalciferol [Vitamin D2] 1 cap PO QWEEK 01/01/19 01/01/19 Unknown History Ferrous Sulfate [Feosol 325 MG tab] 325 mg PO QDAY 01/01/19 01/01/19 Unknown History Omeprazole 20 mg PO DAILY 01/01/19 01/01/19 Unknown History Pregabalin [Lyrica] 50 mg PO TID 01/01/19 01/01/19 Unknown History hydroCHLOROthiazide [HCTZ] 12.5 mg PO QDAY 01/01/19 01/01/19 Unknown History tiZANidine [Zanaflex] 4 mg PO BID 01/01/19 01/01/19 Unknown History Active Medications: Generic Name Dose Route Start Last Admin Trade Name Freq PRN Reason Stop Dose Admin Acetaminophen 650 mg 01/01/19 22:09 Tylenol PO Q4H PRN Pain MILD(1-3)/Fever >100.5/STRATTON Albuterol 2.5 mg 01/01/19 22:42 Proventil IH Q4HRT PRN Shortness Of Breath Atorvastatin Calcium 20 mg 01/02/19 22:00 01/03/19 22:17 Lipitor PO 20 mg QHS JEYSON Administration Duloxetine HCl 30 mg 01/02/19 10:00 01/03/19 10:13 Cymbalta PO 30 mg DAILY JEYSON Administration Ferrous Sulfate 325 mg 01/02/19 10:00 01/03/19 10:13 Feosol PO 325 mg QDAY JEYSON Administration Hydrochlorothiazide 12.5 mg 01/02/19 10:00 01/03/19 10:13 Hctz PO 12.5 mg QDAY JEYSON Administration Sodium Chloride 1,000 mls @ 125 mls/hr 01/01/19 23:00 01/04/19 07:35 Nacl 0.9% 1000 Ml IV 75 mls/hr DIRECT JEYSON Administration Morphine Sulfate 2 mg 01/01/19 22:09 Morphine IV Q4H PRN Pain, Moderate (4-6) Ondansetron HCl 4 mg 01/01/19 22:09 Zofran IV Q8H PRN Nausea And Vomiting Oxycodone/Acetaminophen 1 tab 01/01/19 22:09 Percocet 5/325 PO Q6H PRN Pain, Moderate (4-6) Pantoprazole Sodium 20 mg 01/02/19 10:00 01/03/19 10:14 Protonix PO 20 mg QDAY JEYSON Administration Pregabalin 50 mg 01/02/19 08:00 01/04/19 08:38 Lyrica PO 50 mg TID JEYSON Administration Sodium Chloride 10 ml 01/02/19 10:00 01/03/19 22:17 Sodium Chloride Flush Syringe 10 Ml IV 10 ml BID JEYSON Administration Sodium Chloride 10 ml 01/01/19 22:09 Sodium Chloride Flush Syringe 10 Ml IV PRN PRN LINE FLUSH Tizanidine HCl 4 mg 01/01/19 23:00 01/03/19 22:17 Zanaflex PO 4 mg BID JEYSON Administration
--- NOTE | 2019-01-04 10:21 | Discharge Summary ---
Providers - Providers Date of Admission: 01/01/19 13:46 Attending physician: CECY PARISH MD 01/01/19 22:34 Consult to Physician [CONS] Routine Comment: Consulting Provider: SHANA MONCADA Physician Instructions: Reason For Exam: JAYLA/CKD Primary care [facility]: [facility] Hospitalization Reason for admission: Chest pain Condition: Stable Hospital course: 63-year-old male with history of COPD, hypertension and GERD peripheral neuropathy and muscle spasms comes in for substernal chest pain since yesterday. Chest pain more since morning associated with nausea and vomiting 1. EMS was called and he was noticed to have a low heart rate of 45. Was given atropine enroute. Chest pain is intermittent and about 6 on a scale of 1-10. Retrosternal and precordial. No radiation to the left arm on the back. No diaphoresis or palpitations. No shortness of breath. No recent travel. No fevers or chills. Patient had stress test that was negative. Monitored by Nephrology and recommended to mohit to follow with Nephrology outpatient. Clinically improved. 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 GENERAL: The patient appeared well nourished and normally developed, Vital sign s as documented. HEAD: No signs of head trauma. EYES: Pupils are equal. Extraocular motions intact. EARS: Hearing grossly intact. MOUTH: Oropharynx is normal. NECK: No adenopathy, no JVD. Mildly tender on the right side. CHEST: Chest with clear breath sounds bilaterally. No wheezes, rales, or rhonchi. CARDIAC: Regular rate and rhythm. S1 and S2, without murmurs, gallops, or rubs . VASCULAR: No Edema. Peripheral pulses normal and equal in all extremities. ABDOMEN: Soft, non tender and non distended. No rebound or guarding, and no masses palpated. Bowel Sounds normal. MUSCULOSKELETAL: Good range of motion of all major joints. Extremities without clubbing, cyanosis or edema. NEUROLOGIC EXAM: Alert and oriented x 3 No focal sensory or strength deficits. Speech normal. Follows commands. PSYCHIATRIC: Mood normal. SKIN: Well-healed left surgical lesion in the flank area. - Constitutional Vitals: Temp Pulse Resp BP Pulse Ox 98.3 F 63 16 112/63 94 01/04/19 05:34 01/04/19 05:34 01/04/19 05:34 01/04/19 05:34 01/04/19 05:34 Plan Activity: advance as tolerated, fall precautions Diet: low fat, renal Special Instructions: record daily weights, smoking cessation Follow up with: DYLAN MONTGOMERYCALDWELL MD RENU [Primary Care Provider] - 3-5 Days SHANA MONCADA MD [Staff Physician] - 7 Days BERNARDO VELAZQUEZ MD [Staff Physician] - 7 Days
[2019-01-04] MEDS: FEOSOL PO SCH (11:02)
[2019-01-04] MEDS: HCTZ PO SCH (11:03)
[2019-01-04] MEDS: PROTONIX PO SCH (11:03)
[2019-01-04] MEDS: CYMBALTA PO SCH (11:03)
[2019-01-04] MEDS: ZANAFLEX PO SCH (11:03)
[2019-01-04] MEDS: SODIUM CHLORIDE FLUSH SYRINGE 10 ML IV SCH (11:06)
== END 2019-01-04 14:30 | disposition home or self-care (01) | DRG 205 ==
LOC: ED 11:12 → 4A 13:46 → 3A 01-03 23:15
PROVIDERS: ADMIT Internal Medicine; ATTEND Internal Medicine
DX: M94.0 Chondrocostal junction syndrome [Tietze] (principal); N17.0 Acute kidney failure with tubular necrosis; R00.1 Bradycardia, unspecified; N18.3 Chronic kidney disease, stage 3 (moderate); F17.210 Nicotine dependence, cigarettes, uncomplicated; I12.9 Hypertensive chronic kidney disease with stage 1 through stage 4 chronic kidney disease, or unspecified chronic kidney disease; J44.9 Chronic obstructive pulmonary disease, unspecified; G62.9 Polyneuropathy, unspecified; K52.9 Noninfective gastroenteritis and colitis, unspecified; E55.9 Vitamin D deficiency, unspecified; F32.9 Major depressive disorder, single episode, unspecified; K21.0 Gastro-esophageal reflux disease with esophagitis; M62.838 Other muscle spasm; E78.2 Mixed hyperlipidemia; Z88.0 Allergy status to penicillin; Z90.5 Acquired absence of kidney
CPT/HCPCS: 36415; 71045; 76770; 78452; 80048; 80053; 81001; 82570; 83036; 83735; 83970; 84100; 84156; 84300; 84484; 85025; 85610; 85730; 93005; 93010; 93017; G0378; A9270-GY; A9502; J2785; J7030